=== PATIENT | male | born 1985 | race Native Hawaiian/Other Pacific Islander ===

== ENCOUNTER 2018-06-19 08:29 | Emergency (ER) | payer OTHER ==
[2018-06-19 08:50] VITALS: O2SAT 100
[2018-06-19] MEDS ORDERED: Sodium Chloride 0.9% 1,000 ML IV ONE (08:51)
--- NOTE | 2018-06-19 08:57 | C.PDOC ---
History Of Present Illness 32 y/o male with PMHx of GERD presents to ED for evaluation of epigastric abdominal pain, intermittent, for 1 week associated with nausea. Patient reports, pain is localized over epigastric area and worse after food intake. Pt admits, similar sx in past " take medication for GERD". Patient admits to pain worse today. Otherwise, pt denies fever, chills, recent illness or abx use, CP, SOB, dyspnea, diaphoresis, palpitation, vomiting, diarrhea, melena, hematoschezia, back pain, UTI sx, denies recent travel or known sick contact. Ambulate to ED for evaluation, not in any apparent distress. Time Seen by Provider: 06/19/18 08:36 Chief Complaint (Nursing): Abdominal Pain History Per: Patient History/Exam Limitations: no limitations Onset/Duration Of Symptoms: Days Current Symptoms Are (Timing): Still Present Location Of Pain/Discomfort: Epigastric Past Medical History Reviewed: Historical Data, Nursing Documentation, Vital Signs Vital Signs: Last Vital Signs Temp 98.1 F 06/19/18 08:33 Pulse 71 06/19/18 08:33 Resp 20 06/19/18 08:33 BP 127/79 06/19/18 08:33 Pulse Ox 100 06/19/18 08:33 - Medical History PMH: No Chronic Diseases Surgical History: Appendectomy Family History: States: No Known Family Hx - Social History Hx Alcohol Use: No Hx Substance Use: No - Immunization History Hx Tetanus Toxoid Vaccination: No Hx Influenza Vaccination: No Hx Pneumococcal Vaccination: No Review Of Systems Constitutional: Negative for: Fever, Chills Gastrointestinal: Positive for: Nausea, Abdominal Pain. Negative for: Vomiting, Diarrhea Musculoskeletal: Negative for: Back Pain Skin: Negative for: Rash Physical Exam - Physical Exam Appears: Well, Non-toxic, No Acute Distress Skin: Warm, Dry, No Rash Head: Normacephalic Eye(s): bilateral: PERRL Nose: No Flaring, No Discharge Oral Mucosa: Moist, No Drooling Tongue: Normal Appearing Lips: Normal Appearing Throat: No Erythema, No Drooling Neck: Trachea Midline, Supple Cardiovascular: Rhythm Regular, No Murmur, No JVD Respiratory: No Decreased Breath Sounds, No Rales, No Rhonchi, No Stridor, No Wheezing Gastrointestinal/Abdominal: Soft, Tenderness (Epigastric), No Organomegaly, No Distention, No Guarding, No Rebound Back: No CVA Tenderness, No Paraspinal Tenderness Extremity: Normal ROM, No Deformity, No Swelling Neurological/Psych: Oriented x3, Normal Speech, Normal Cognition ED Course And Treatment - Laboratory Results Result Diagrams: 06/19/18 09:32 06/19/18 09:32 Lab Interpretation: No Acute Changes ECG: Interpreted By Me, Viewed By Me ECG Rhythm: Sinus Rhythm Interpretation Of ECG: SR@68/min, LAD, incomplete RBBB, no acute ST-T changes. O2 Sat by Pulse Oximetry: 100 (RA) Pulse Ox Interpretation: Normal - CT Scan/US US Gallbladder/hepatic Other Rad Studies (CT/US): Radiology Report Reviewed CT/US Interpretation: IMPRESSION: Echogenic liver may be seen in setting of hepatic parenchymal disease or fatty infiltration. Two focal areas of hypoechogenicity as described above, possibly focal fatty sparing of the liver. Suggest dedicated cross-sectional imaging for further evaluation if indicated. 7 mm echogenic right renal focus, likely nonobstructing calculus. No hydronephrosis identified. Progress Note: Pt was OBS in ED for 3 hours and reports moderate improvement in sx. On re-evaluation, pt is afebrile, hemodynamicaly stable. Non-toxic. Tolerate Po well in ED. ENT: No acute changes,. neck: Supple, (-) JVD, (-) carotid bruits B/L. Abd: benign, (-) guarding, (-) rebound. back: (-) CVA tenderness. neurologicaly intact. Blood work review and appears without acute abnoramlities. UA results review. Gallbladder/hepatic US, no acute abnoramlities. Pt has clinical finidngs c/w epigsatric pain, kidney stone. Pt advised advised and ref. to F/u with PMD in 2-3 days for re-eval. return to ED if any worsening or new changes. Disposition Counseled Patient/Family Regarding: Studies Performed, Diagnosis, Need For Followup, Rx Given - Disposition Referrals: Marge Ortega [Staff Provider] - [facility] [Outside] Disposition: HOME/ ROUTINE Disposition Time: 11:32 Condition: STABLE Additional Instructions: Encourage fluids Take medication as prescribed follow up with PMD in 2-3 days for re0-evaluation. return to Ed if any worsening or new changes. Prescriptions: Ondansetron ODT [Zofran ODT] 4 mg PO BID #6 odt Pantoprazole Sodium [Protonix] 40 mg PO DAILY #20 ect Sucralfate [Carafate] 1 gm PO TID #20 tablet Instructions: Kidney Stones in Adults, Gastritis (DC) Forms: [employer] (Armenian) - Clinical Impression Clinical Impression: Nausea, Epigastric pain, Kidney stone - PA / [employer] / Resident Statement MD/DO has reviewed & agrees with the documentation as recorded. - Scribe Statement The provider has reviewed the documentation as recorded by the Alexanderibvik Shah All medical record entries made by the Burton were at my direction and personally dictated by me. I have reviewed the chart and agree that the record accurately reflects my personal performance of the history, physical exam, medical decision making, and the department course for this patient. I have also personally directed, reviewed, and agree with the discharge instructions and disposition.
[2018-06-19 09:35] LABS: BASO % 0.3 % (0.0-2.0); EOS # 0.2 K/uL (0.0-0.7); EOS % 2.4 % (0.0-4.0); HEMOGLOBIN 15.6 g/dL (12.0-18.0); LYMPH # 1.6 K/uL (1.0-4.3); LYMPH % 16.6 % (20.0-40.0); MEAN CELL VOLUME 85.5 fL (80.0-94.0); MEAN CORPUSCULAR HEMOGLOBIN 29.7 pg (27.0-31.0); MEAN CORPUSCULAR HGB CONC 34.8 g/dL (33.0-37.0); MEAN PLATELET VOLUME 8.9 fL (7.2-11.7); MONO # 0.4 K/uL (0.0-0.8); MONO % 4.3 % (0.0-10.0); NEUT # 7.2 K/uL (1.8-7.0); NEUT % 76.4 % (50.0-75.0); RBC 5.26 Mil/uL (4.40-5.90); RED CELL DISTRIBUTION WIDTH 12.7 % (11.5-14.5); WHITE BLOOD COUNT 9.4 K/uL (4.8-10.8)
[2018-06-19 09:46] LABS: INR 1.1; PROTHROMBIN TIME 11.7 SECONDS (9.7-12.2)
[2018-06-19 09:48] LABS: ALB/GLOB RATIO 1.5 (1.0-2.1); ALBUMIN 4.5 g/dL (3.5-5.0); ALT/SGPT 74 U/L (21-72); AST/SGOT 44 U/L (17-59); BLOOD UREA NITROGEN 14 mg/dL (9-20); CALCIUM 9.4 mg/dl (8.6-10.4); GFR NON-AFRICAN AMERICAN > 60; LIPASE 199 U/L (23-300)
[2018-06-19 10:00] LABS: URINE BILIRUBIN NEGATIVE (NEGATIVE); URINE BLOOD NEGATIVE (NEGATIVE); URINE CLARITY Clear (Clear); URINE COLOR Yellow (YELLOW); URINE GLUCOSE (UA) NORMAL (Normal); URINE LEUKOCYTE ESTERASE NEG Leu/uL (Negative); URINE PROTEIN NEGATIVE (NEGATIVE); URINE UROBILINOGEN NORMAL mg/dL (0.2-1.0)
--- NOTE | 2018-06-19 11:42 | US ---
Date of service: 06/19/2018 HISTORY: epigastric pain COMPARISON: None available TECHNIQUE: Sonographic evaluation of the right upper quadrant of the abdomen. FINDINGS: LIVER: Measures 17.5 cm in length. Echogenic liver may be seen in setting of hepatic parenchymal disease or fatty infiltration. 2.5 x 1.7 x 1.4 cm hypoechoic region as well as 1.1 x 0.8 x 0.9 cm hypoechoic focus adjacent to the gallbladder fossa; possibly focal fatty sparing. The main portal vein appears patent with normal directional flow. No intrahepatic bile duct dilatation. GALLBLADDER: No gallstones. No gallbladder wall thickening or pericholecystic edema. Negative sonographic Francis's sign as assessed by the mangle feeder. COMMON BILE DUCT: Measures 5 mm. PANCREAS: Not well-visualized. RIGHT KIDNEY: Measures 10.1 x 5.0 x 6.5 cm. 7 mm echogenic focus, likely nonobstructing calculus. No hydronephrosis identified. AORTA: Limited visualization appears grossly unremarkable. IVC: Limited visualization appears grossly unremarkable. OTHER FINDINGS: None . IMPRESSION: Echogenic liver may be seen in setting of hepatic parenchymal disease or fatty infiltration. Two focal areas of hypoechogenicity as described above, possibly focal fatty sparing of the liver. Suggest dedicated cross-sectional imaging for further evaluation if indicated. 7 mm echogenic right renal focus, likely nonobstructing calculus. No hydronephrosis identified.
[2018-06-19 12:27] VITALS: BP 112/79; PULSE 61; RESP 16; TEMP 98.5
--- NOTE | 2018-06-20 13:22 | CARD ---
APPROVED REPORT Date of service: 06/19/2018 EKG Measurement Heart [id number] <Conclusion> Normal sinus rhythm Incomplete right bundle branch block Minimal voltage criteria for LVH, may be normal variant Borderline ECG
== END 2018-06-19 12:27 | disposition home or self-care (01) ==
LOC: C.ER 08:29
DX: N20.0 Calculus of kidney (principal); R11.0 Nausea; R10.13 Epigastric pain
CPT/HCPCS: 76705; 80053; 81001; 83690; 84484; 85025; 85610; 85730; 93005; 96374; 96375; 99284; C9113; J2405; J7030